=== PATIENT | male | born 1930 | race Caucasian/White ===

== ENCOUNTER → 2016-08-18 | Outpatient (CLI) | payer MEDICARE, OTHER ==
[~2016-08-18] MED LIST: ASPIRIN325 M1 PO; ATENOLOL100 MG OR; CHEWABLE ASPIRI81 MG PO; EFFEXOR37.5 MG PO; HCTZ/TRIAMTEREN1 CAP PO; IMDUR30 MG PO; LOVASTATIN40 MG PO; NAPROSYN 500MG500 MG PO; PRILOSEC20 MG PO; TYLENOL ES500 M1 PO
[2016-08-18 08:50] LABS: HEMOGLOBIN 15.5 g/dL (14.1-18.0); LYMPH # 1.6 K/mm3 (0.7-4.5); LYMPH % 22.8 % (10-50)
[2016-08-18 09:52] LABS: BUN 19 mg/dL (7-18)
[2016-08-18 09:53] LABS: GFR (ESTIMATED) 48 ML/MIN (>60)
== END ==
LOC: LAB 08:31
PROVIDERS: Internal Medicine Adolescent Medicine
DX: E78.5 Hyperlipidemia, unspecified (principal); G20 Parkinson's disease; Z79.01 Long term (current) use of anticoagulants; Z51.81 Encounter for therapeutic drug level monitoring